=== PATIENT | female | born 1950 | race African-American/Black ===

== ENCOUNTER 2016-06-09 11:47 | Inpatient (IN) | payer OTHER ==
[~2016-06-09] VITALS: Ht 165.1 cm; Wt 96.9 kg
--- NOTE | ~2016-06-09 | EKG ---
[address] [place] [address] ELECTROCARDIOGRAM REPORT Name: BOBBY ESTEVEZ Room #: 211-P ADM IN M.R.#: [id number] Admission: 06/09/16 Attend Phys: Davidson Harper DO Discharge: Date of : 52 Report #: [id number] THIS REPORT FOR: //name// [facility] ED Test Date: 2016-06-09 Test Time: 11:48:23 Pat Name: BOBBY ESTEVEZ Department: Room: 211 Gender: F Furniture Maker: MZOOK : 1950 Requested By: Valarie Lino Order Number: [id number] MD: Jett Solorzano Measurements Intervals [place] Rate: 57 P: 58 [place]: 207 QRS: -9 QRSD: 97 T: 7 QT: 440 QTc: 429 Interpretive Statements Sinus bradycardia Low voltage, precordial leads Left ventricular hypertrophy Borderline T abnormalities No previous ECG available for comparison Electronically Signed On 06-10-2016 8:29:29 CDT by Jett Solorzano [email or web address] <ELECTRONICALLY SIGNED> By: Jett Solorzano MD, [facility] 06/10/16 0829 [id number] [id number] Jett Solorzano MD, [facility] /EPI
--- NOTE | ~2016-06-09 | HC ---
[facility] [address] [place] [address] CONSULTATION Name: BOBBY ESTEVEZ Room #: 211-P ADM IN M.R.#: [id number] Admission: 06/09/16 Attend Phys: Davidson Harper DO Discharge: Date of : 52 Report #: [id number] THIS REPORT FOR: //name// CC: Davidson Donato REASON FOR CONSULTATION: Chest pain. HISTORY OF PRESENT ILLNESS: The patient is a 65-year-old woman with history of hypertension. She had an episode of chest discomfort last evening about 08:30 p.m. This lasted for several. She went to sleep with the pain and got up this morning and the pain was gone. After getting up this morning, she felt poorly with dizziness and headache. She has had sinus congestion and runny nose. She denies prior cardiac history. There have been no heart failure symptoms. She denies palpitations, near syncope or syncope. She went to taoism this morning and was talking with a nurse that told her that she should be checked out in the emergency department given this episode of pain that she had. Thus far, several cardiac enzymes have been normal. Her EKG is normal. I have been asked to see her in regards to this chest pain syndrome. ALLERGIES: She is allergic to LATEX. MEDICATIONS: Include levothyroxine, 0.125 mg daily, Dyazide 1 a day, amlodipine 5 mg daily and Celexa 10 mg daily. PAST MEDICAL HISTORY: Her past history and medical records have been reviewed and includes a history of hypertension and hypothyroidism. SOCIAL HISTORY: She is a nonsmoker. She works as an entry level administrative assistant, . FAMILY HISTORY: Notable for sisters who have had heart problems. They were in their 80s, had bypass surgery. Father of a heart attack. REVIEW OF SYSTEMS: All systems negative, except as that noted above. PHYSICAL EXAMINATION: GENERAL: On exam, this is a pleasant woman in no distress. VITAL SIGNS: Blood pressure is 128/66, heart rate is 64 and regular. She is afebrile, 5 feet 5 inches tall, 207 pounds. HEENT: There are neither xanthelasma, subcutaneous xanthomata, oral mucosal or digital cyanosis or kyphoscoliosis present. CHEST: Clear to auscultation and percussion. CARDIAC EXAMINATION: Regular rate and rhythm with normal S1, S2. No murmurs or rubs. ABDOMEN: Soft and nontender. EXTREMITIES: Without cyanosis, clubbing or edema. Radial pulses are 2+. [facility] [address] [place] [address] CONSULTATION Name: BOBBY ESTEVEZ Room #: [address] [place] [address] [place] [facility]#: [id number] Admission: 06/09/16 Attend Phys: Davidson Harper DO Discharge: Date of : 52 Report #: [id number] NEUROLOGIC: She is alert with a nonfocal exam. LABORATORY DATA: EKG: Sinus rhythm with minimal nonspecific T-wave abnormality. Sodium 139, potassium 3.1 and creatinine 1.1. Serial troponins are normal. White count of 7.5, hemoglobin 13, hematocrit 39 and platelet count 344,000. TSH 0.039. Chest x-ray is normal. IMPRESSION: 1. Chest pain. Mixed features for ischemia. 2. Hypertension. 3. Dizziness and headache, likely related to sinusitis. RECOMMENDATIONS: 1. Rule out myocardial infarction. 2. Supplement potassium. 3. Consider changing hydrochlorothiazide to spironolactone. 4. Stress echocardiogram. Based on her presentation, I have fairly low suspicion that this presentation is on the basis of unstable angina or myocardial ischemia. <ELECTRONICALLY SIGNED> By: Jett Solorzano MD, FACC 06/10/16 0827 [id number] Jett Solorzano MD, FACC /nt
--- NOTE | ~2016-06-09 | EXE ---
[facility] [place] [address] STRESS ECHOCARDIOGRAM Name: BOBBY ESTEVEZ Room #: 211-P [facility] IN ..#: [id number] Admission: 06/09/16 Attend Phys: Davidson Harper, Discharge: Date of : 52 Date of Service: 06/10/16 1003 Report #: [id number] THIS REPORT FOR: //name// APPROVED REPORT Exam: Stress Echocardiogram Patient Location: Echo lab HR: 75 bpm Medical History Medical History: HTN Allergies: No known drug allergies Cardiac Risk Factors: HTN Exercise History: Sedentary Procedure The patient underwent an Exercise Stress Test using the Wesley Protocol. Blood pressure, heart rate, and EKG were monitored. An Echocardiogram was performed by electrical service technician in four stages in quad fashion. At peak stress, four selected images were obtained and placed side by side with resting images for comparison. Testing Details Test: Exercise stress testing was performed using a Wesley protocol. HR Resting HR: 75 bpm Max Heart Rate (APMHR): 156 bpm Max HR Achieved: 153 bpm Target HR (85% APMHR): 132 bpm % of APMHR: 98 Recovery HR: 77 bpm HR response to stress: Normal HR response to stress BP Resting BP: 132/64 mmHg Max BP: 180/82 mmHg Recovery BP: 138/84 mmHg ECG Resting ECG: Sinus Rhythm Stress ECG: NSR, normal EKG ST Change: Normal Arrhythmia: None Recovery ECG: Sinus Rhythm Recovery ST Change: [facility] [address] [place] [address] STRESS ECHOCARDIOGRAM Name: BOBBY ESTEVEZ Room #: 211-P [facility] IN M.R.#: [id number] Admission: 06/09/16 Attend Phys: Davidson Harper, Discharge: Date of : 52 Date of Service: 06/10/16 1003 Report #: [id number] Clinical Reason for Termination: Maximal effort Exercise duration: 6 min Exercise capacity: 7.1 METs Stress ECG Conclusion 1. Nonischemic clinical findings 2. Nonischemic ecg findings 3. Nonischemic echo findings 4. Nonischemic stress echo Pre-Stress Echo The resting Echocardiogram showed normal left ventricular contractility with an estimated Ejection Fraction of about >55%. Post-Stress Echo The stress Echocardiogram showed normal left ventricular contractility with an estimated Ejection Fraction of about >70%. Clinical Normal augmentation of myocardial wall segments using a 17 segment model. Other Information Study Quality: Good <ELECTRONICALLY SIGNED> By: Jett Solorzano MD, [facility] 06/10/161002 02 02 Jett Solorzano MD, FACC /INF
[2016-06-09 11:50] VITALS: BP 142/83
[2016-06-09] MEDS ORDERED: NORVASC5 MG PO (12:04)
[2016-06-09] MEDS ORDERED: MAXZIDE-25 MG1 EACH PO (12:04)
[2016-06-09] MEDS ORDERED: LEVOTHYROXIN0.125 M1 PO (12:04)
[2016-06-09] MEDS ORDERED: ESCITALOPRAM OX10 MG PO (12:05)
[2016-06-09 12:29] LABS: HEMATOCRIT 39.2 % (37.0-47.0); HEMOGLOBIN 13.1 gm/dL (12.0-15.0); MCH 28.5 pg (26.0-34.0); MCHC 33.4 g/dL (28.0-37.0); MCV 85.3 fL (80.0-100.0); RBC 4.59 mil/uL (4.20-5.00); RDW 14.9 % (10.5-14.5); WBC 7.5 thou/uL (4.0-11.0)
[2016-06-09 12:43] LABS: ALBUMIN 3.5 g/dL (3.4-5.0); ALKALINE PHOSPHATASE 88 U/L (46-116); ANION GAP 9 mmol/L (7-16); BUN 16 mg/dL (7-18); CALCIUM 9.8 mg/dL (8.5-10.1); CHLORIDE 102 mmol/L (98-107); CO2 28 mmol/L (21-32); CREATININE 1.1 mg/dL (0.6-1.0); GLUCOSE 98 mg/dL (74-106); POTASSIUM 3.1 mmol/L (3.5-5.1); SGOT 28 U/L (15-37); SGPT 23 U/L (30-65); SODIUM 139 mmol/L (136-145); TOTAL BILIRUBIN 0.4 mg/dL (<0.1-1.0); TROPONIN-I < 0.04 ng/mL (<0.04-0.07)
[2016-06-09 14:05] VITALS: BP 142/83
[2016-06-09 14:45] VITALS: BP 126/63
[2016-06-09 16:40] VITALS: BP 123/61
[2016-06-09 19:15] VITALS: BP 128/66
[2016-06-10 00:43] LABS: ANION GAP 10 mmol/L (7-16); BUN 18 mg/dL (7-18); CHLORIDE 102 mmol/L (98-107); CO2 27 mmol/L (21-32); CREATININE 1.2 mg/dL (0.6-1.0); GLUCOSE 133 mg/dL (74-106); SODIUM 139 mmol/L (136-145); TROPONIN-I < 0.04 ng/mL (<0.04-0.07)
[2016-06-10 00:48] LABS: POTASSIUM 2.9 mmol/L (3.5-5.1)
[2016-06-10 04:00] VITALS: BP 130/66
[2016-06-10 07:13] VITALS: BP 132/64
[2016-06-10] MEDS ORDERED: ASPIR 8181 MG PO (10:38)
[2016-06-10] MEDS ORDERED: LEVOTHYROXINE 0.1 MG PO (10:39)
[2016-06-10 10:47] VITALS: BP 132/64
== END 2016-06-10 11:53 | disposition home or self-care (01) | DRG 313 ==
LOC: ER 11:47 → EROBS 13:38 → 2N 13:38
PROVIDERS: Physician Assistant
DX: R07.9 Chest pain, unspecified (principal); J32.9 Chronic sinusitis, unspecified; E03.9 Hypothyroidism, unspecified; E87.6 Hypokalemia; I10 Essential (primary) hypertension; Z91.040 Latex allergy status; Z82.49 Family history of ischemic heart disease and other diseases of the circulatory system; Z79.899 Other long term (current) drug therapy; Z79.82 Long term (current) use of aspirin
CPT/HCPCS: 10081